=== PATIENT | female | born 1990 | race Caucasian/White ===

== ENCOUNTER 2020-03-29 12:24 | Observation (INO) | payer OTHER ==
[~2020-03-29] VITALS: Ht 175.3 cm; Wt 108.0 kg
[2020-03-29 12:56] VITALS: BP 137/86
[2020-03-29] MEDS ORDERED: cefTRIAXone 2,000 MG in DEXTROSE 5% 100 ML IV SCH (13:45)
[2020-03-29] MEDS ORDERED: LACTATED RINGERS 1,000 ML IV SCH (13:45)
[2020-03-29] MEDS ORDERED: CLINDAMYCIN 900 MG in DEXTROSE 5% 100 ML IV SCH (14:00)
[2020-03-29 14:48] LABS: URINE TOTAL PROTEIN 9.6 mg/dL (0-12)
[2020-04-11] MEDS ORDERED: PNV91TAB10 PO (19:04)
[2020-04-11] MEDS ORDERED: AMOX500C25 PO (19:04)
== END 2020-03-29 16:50 | disposition home or self-care (01) ==
LOC: MFCC 12:24
PROVIDERS: ADMIT Obstetrics & Gynecology; ATTEND Obstetrics & Gynecology
DX: O26.893 Other specified pregnancy related conditions, third trimester (principal); R03.0 Elevated blood-pressure reading, without diagnosis of hypertension; Z3A.37 37 weeks gestation of pregnancy
CPT/HCPCS: 81000; 82570; 96360; 96361; G0378; J3490; J7060; J7120; 36415

== ENCOUNTER 2022-09-20 23:37 | Emergency (ER) | payer OTHER ==
[~2022-09-20] VITALS: Ht 175.3 cm; Wt 95.3 kg
[~2022-09-20 23:37] MED LIST: FERR325E14 PO; IBUP-2213 PO; PNV91TAB10 PO
[2022-09-20 23:43] VITALS: BP 134/68
--- NOTE | 2022-09-20 23:48 | NUR ---
TO LOBBY FOLLOWING TRIAGE
--- NOTE | 2022-09-21 01:34 | NUR ---
PT TO BED 04.
[2022-09-21] MEDS ORDERED: NACL 0.9% 1,000 ML IV ONE (01:50)
[2022-09-21] MEDS ORDERED: VANCOMYCIN 1,000 MG in DEXTROSE 5% 250 ML IV ONE (01:50)
--- NOTE | 2022-09-21 01:53 | NUR ---
LABS COLLECTED AND GIVEN TO DIANA
[2022-09-21] MEDS ORDERED: VANCOMYCIN 1,000 MG VIAL ONE (02:00)
[2022-09-21 02:10] LABS: BASOPHILS % (AUTO) 0.2 % (0.0-2.0); EOSINOPHILS # (AUTO) 0.1 K/uL (0-0.4); EOSINOPHILS % (AUTO) 0.8 % (0.0-4.0); HEMATOCRIT 39.1 % (36-48); HEMOGLOBIN 12.9 g/dL (12.0-16.0); LYMPHOCYTES # (AUTO) 1.9 K/uL (2.5-16.5); LYMPHOCYTES % (AUTO) 11.3 % (20.5-51.1); MEAN CORPUSCULAR HEMOGLOBIN 29 pg (27-31); MEAN CORPUSCULAR HGB CONC 33 g/dL (33-37); MEAN CORPUSCULAR VOLUME 86.5 fL (80-94); MONOCYTES # (AUTO) 1.1 K/uL (0.8-1.0); MONOCYTES % (AUTO) 6.6 % (1.7-9.3); NEUTROPHILS # (AUTO) 13.3 K/uL (1.8-7.7); PLATELET COUNT (AUTO) 337 K/uL (140-450); RED BLOOD CELL COUNT(AUTO) 4.52 MIL/uL (4.20-5.40); RED CELL DISTRIBUTION WIDTH 13.3 % (11.6-13.7); WHITE BLOOD COUNT (AUTO) 16.4 K/uL (4.8-10.8)
[2022-09-21 02:24] LABS: NEUTROPHILS % (AUTO) 81.1 % (42.2-75.2)
--- NOTE | 2022-09-21 02:27 | NUR ---
pt with chills for 2 days and nauseated presenting red swelling abcess on the right pelvic area. room air alert oriented x .
[2022-09-21 02:38] LABS: ALBUMIN 3.4 g/dL (3.4-5.0); ANION GAP 12.5 (8-16); CARBON DIOXIDE 28.4 mmol/L (21-32); POTASSIUM 3.9 mmol/L (3.5-5.1); TOTAL BILIRUBIN 0.3 mg/dL (0.0-1.0)
[2022-09-21] MEDS ORDERED: LIDOCAINE 1% 500 MG/ 50 ML VIAL INJ ONE (03:15)
[2022-09-21] MEDS ORDERED: LIDOCAINE MPF 1% 5 ML ONE (03:19)
[2022-09-21] MEDS ORDERED: LIDOCAINE MPF 1% 10 ML ONE (03:20)
[2022-09-21] MEDS ORDERED: CHLO480L2 TP (05:35)
[2022-09-21] MEDS ORDERED: SULF-58 PO (05:35)
[2022-09-21] MEDS ORDERED: NAPR-54 PO (05:36)
[2022-09-21 05:45] VITALS: BP 134/68
--- NOTE | 2022-09-21 05:45 | NUR ---
Patient discharged with v/s stable. Written and verbal after care instructions given and explained. Patient alert, oriented and verbalized understanding of instructions. Ambulatory with steady gait. All questions addressed prior to discharge. ID band removed. Patient advised to follow up with PMD. Rx of HIBICLENS, NAPROSYN, BACTRIM given. Patient educated on indication of medication including possible reaction and side effects. Opportunity to ask questions provided and answered.
== END 2022-09-21 05:45 | disposition home or self-care (01) ==
LOC: MED 23:37
DX: L02.211 Cutaneous abscess of abdominal wall (principal); Z88.8 Allergy status to other drugs, medicaments and biological substances
CPT/HCPCS: 10060; 36415; 80053; 83605; 85025; 87040; 87086; 96365; 96366; 99284; J2001; J3370; J7030

== ENCOUNTER 2022-09-23 02:09 | Inpatient (IN) | payer OTHER ==
[~2022-09-23] VITALS: Ht 175.3 cm; Wt 94.8 kg
[~2022-09-23 02:09] MED LIST changes: +CHLO480L2 TP; +NAPR-54 PO; +SULF-58 PO
[2022-09-23 02:15] VITALS: BP 165/72
--- NOTE | 2022-09-23 03:42 | NUR ---
Patient taken to bed 11.
[2022-09-23] MEDS ORDERED: VANCOMYCIN 1,000 MG in DEXTROSE 5% 250 ML IV ONE (03:50)
[2022-09-23] MEDS ORDERED: NACL 0.9% 1,500 ML IV ONE (03:50)
[2022-09-23] MEDS ORDERED: KETOROLAC 30 MG/ML VIAL IVP ONE (03:50)
--- NOTE | 2022-09-23 03:55 | NUR ---
COVID-19 and culture swabs collected and sent to lab.
[2022-09-23] MEDS ORDERED: VANCOMYCIN 1,000 MG VIAL ONE ×2 (04:14→13:09)
[2022-09-23 04:15] LABS: BASOPHILS % (AUTO) 0.3 % (0.0-2.0); EOSINOPHILS # (AUTO) 0.3 K/uL (0-0.4); EOSINOPHILS % (AUTO) 2.4 % (0.0-4.0); HEMOGLOBIN 11.5 g/dL (12.0-16.0); LYMPHOCYTES # (AUTO) 2.2 K/uL (2.5-16.5); LYMPHOCYTES % (AUTO) 18.5 % (20.5-51.1); MEAN CORPUSCULAR HEMOGLOBIN 29 pg (27-31); MEAN CORPUSCULAR HGB CONC 33 g/dL (33-37); MEAN CORPUSCULAR VOLUME 86.8 fL (80-94); MONOCYTES # (AUTO) 0.6 K/uL (0.8-1.0); MONOCYTES % (AUTO) 5.3 % (1.7-9.3); NEUTROPHILS # (AUTO) 8.6 K/uL (1.8-7.7); NEUTROPHILS % (AUTO) 73.5 % (42.2-75.2); PLATELET COUNT (AUTO) 328 K/uL (140-450); RED BLOOD CELL COUNT(AUTO) 4.04 MIL/uL (4.20-5.40); RED CELL DISTRIBUTION WIDTH 13.4 % (11.6-13.7); WHITE BLOOD COUNT (AUTO) 11.7 K/uL (4.8-10.8)
[2022-09-23 04:35] LABS: ALBUMIN 3.6 g/dL (3.4-5.0); ANION GAP 10.3 (8-16); CARBON DIOXIDE 28.8 mmol/L (21-32); POTASSIUM 4.1 mmol/L (3.5-5.1); TOTAL BILIRUBIN 0.1 mg/dL (0.0-1.0)
--- NOTE | 2022-09-23 04:44 | NUR ---
Patient noted to have existing wounds upon arrival to ER. Photos taken of wound and placed in chart. Wound covered with non adherent dressing. Physician informed.
[2022-09-23] MEDS ORDERED: VANCOMYCIN PER PHARMACY MC PRN (05:15)
[2022-09-23] MEDS ORDERED: MAGNESIUM OXIDE 400 MG TAB PO PRN (05:15)
[2022-09-23] MEDS ORDERED: MORPHINE SULFATE 4 MG/ML SYR IVP PRN (05:15)
[2022-09-23] MEDS ORDERED: ACETAMINOPHEN 325 MG TAB PO PRN (05:15)
[2022-09-23] MEDS ORDERED: ONDANSETRON 4 MG/2 ML VIAL IVP PRN (05:15)
[2022-09-23] MEDS ORDERED: POTASSIUM CHLORIDE 10 MEQ TABER PO PRN (05:15)
[2022-09-23] MEDS ORDERED: HYDROcodone/APAP 5/325 MG 1 TAB TAB PO PRN (05:15)
--- NOTE | 2022-09-23 07:49 | NUR ---
Pt report given to Mustapha RACHEL. Transfer of care at this time.
--- NOTE | 2022-09-23 08:14 | NUR ---
Dr. Tolliver examining patient.
[2022-09-23] MEDS: NACL 0.9% 1,000 ML IV SCH ×2 (09:00→17:11)
[2022-09-23] MEDS: LEVOFLOXACIN 500 MG/D5W PREMIX 100 ML IV SCH (09:19)
[2022-09-23] MEDS: NIFEdipine 60 MG TABER PO SCH (09:19)
--- NOTE | 2022-09-23 12:35 | NUR ---
PT MOVED TO BED 4 VIA [facility]
[2022-09-23] MEDS ORDERED: VANCOMYCIN 1,000 MG in DEXTROSE 5% 250 ML IV SCH (13:00)
[2022-09-23] MEDS ORDERED: metroNIDAZOLE 500 MG/NS PREMIX 100 ML IV SCH (13:00)
--- NOTE | 2022-09-23 14:16 | NUR ---
Patient will be admitted to care of DR. FLAHERTY. Admited to TELE. Will go to room 112B. Belongings list completed. Report to BETTINA.
--- NOTE | 2022-09-23 15:00 | NUR ---
RECEIVED REPORT FROM ER NURSE. ADMITTED 32 Y/O FEMALE WITH A CC OF SUPRAPUBIC PAIN AND SWELLING. ADMITTING DX CELLULITIS. AOX4, ABLE TO MAKE NEEDS KNOWN. NO C/O PAIN AT THIS TIME, NO SOB ON ROOM AIR. SR ON TELE. CONTINENT AND AMBULATORY TO BATHROOM. WITH LAC 20G RUNNING IVF ORDERED
[2022-09-23 15:03] VITALS: BP 149/83
[2022-09-23] MEDS ORDERED: VANCOMYCIN 1.25GM PREMIX 250 ML IV SCH (16:00)
--- NOTE | 2022-09-23 17:31 | NUR ---
PT ASLEEP IN BED, NO APPARENT DISTRESS
--- NOTE | 2022-09-23 19:26 | NUR ---
GOT REPORT FROM THE NIGHT NURSE PT IS RESTING ON THE PHONE.[email or web address]
[2022-09-23 20:00] VITALS: BP 134/81
[2022-09-23] MEDS: VANCOMYCIN 1,000 MG in DEXTROSE 5% 250 ML IV SCH (21:03)
--- NOTE | 2022-09-23 22:39 | NUR ---
pt resting well iv infusing as ordered,no complaint.[email or web address]
--- NOTE | 2022-09-23 23:42 | NUR ---
REPORT GIVEN TO THE SENIOR [employer]ER[employer] MARKET COORDINATOR [email or web address]
--- NOTE | 2022-09-23 23:45 | NUR ---
RECEIVED PT. FROM WILSON WARD FOR CONTINUITY OF CARE. PER REPORT PT. AOX4. ON 4L NC. SINUS RHYTHM ON THE MONITOR. ON CARDIAC DIET. PT. IV TO LEFT ARM 20G LINE PATENT AND INTACT,INFUSING NS AT 80 ML/HR. PT. WITH SUPRAPUBIC DRESSING . PT. SLEEPING AT THIS TIME. NO S/S OF PAIN NOTED. PROVIDED SAFE AND QUIET ENVIRONMENT.
[2022-09-24] VITALS: BP 109/63
[2022-09-24 04:00] VITALS: BP 127/79
[2022-09-24] MEDS: VANCOMYCIN 1,000 MG in DEXTROSE 5% 250 ML IV SCH ×2 (04:57→12:47)
[2022-09-24] MEDS: NACL 0.9% 1,000 ML IV SCH (06:14)
[2022-09-24 07:11] LABS: BASOPHILS % (AUTO) 0.4 % (0.0-2.0); EOSINOPHILS # (AUTO) 0.2 K/uL (0-0.4); EOSINOPHILS % (AUTO) 2.2 % (0.0-4.0); HEMATOCRIT 35.4 % (36-48); HEMOGLOBIN 11.8 g/dL (12.0-16.0); LYMPHOCYTES # (AUTO) 2.1 K/uL (2.5-16.5); LYMPHOCYTES % (AUTO) 29.8 % (20.5-51.1); MEAN CORPUSCULAR HEMOGLOBIN 29 pg (27-31); MEAN CORPUSCULAR HGB CONC 33 g/dL (33-37); MEAN CORPUSCULAR VOLUME 85.9 fL (80-94); MONOCYTES # (AUTO) 0.4 K/uL (0.8-1.0); MONOCYTES % (AUTO) 5.5 % (1.7-9.3); NEUTROPHILS # (AUTO) 4.3 K/uL (1.8-7.7); NEUTROPHILS % (AUTO) 62.1 % (42.2-75.2); PLATELET COUNT (AUTO) 339 K/uL (140-450); RED BLOOD CELL COUNT(AUTO) 4.12 MIL/uL (4.20-5.40); RED CELL DISTRIBUTION WIDTH 13.3 % (11.6-13.7)
[2022-09-24 07:25] LABS: ANION GAP 11.5 (8-16); CARBON DIOXIDE 26.3 mmol/L (21-32); CREATININE 0.9 mg/dL (0.6-1.3); POTASSIUM 3.8 mmol/L (3.5-5.1)
[2022-09-24 08:00] VITALS: BP 143/99
--- NOTE | 2022-09-24 09:35 | NUR ---
PATIENT HAS BEEN SCREENED AND CATEGORIZED HIGH NUTRITION RISK. PATIENT WILL BE SEEN WITHIN 1-[address] RECEIVED [facility] NUTRITION CONSULT FOR WOUNDS/PRESSURE ULCERS ON 09/24/22 REVIEWED BY DANA QUI[address]ON[address] RD
[2022-09-24] MEDS: LEVOFLOXACIN 500 MG/D5W PREMIX 100 ML IV SCH (09:56)
[2022-09-24] MEDS: NIFEdipine 60 MG TABER PO SCH (09:56)
[2022-09-24] MEDS ORDERED: CLIN300C61 PO (13:16)
--- NOTE | 2022-09-24 13:55 | NUR ---
09/24/22 RD INITIAL ASSESSMENT COMPLETED PLEASE REFER TO NUTRITION ASSESSMENT UNDER CARE ACTIVITY FOR ESTIMATED NUTRITIONAL NEEDS. 1. CONTINUE CARDIAC DIET TOLERATED 2. RECOMMEND JESSICA BID FOR WOUNDS/PRESSURE ULCER SUPPORT - PROVIDES 160 KCAL AND [address] TO FOLLOW-UP 7 DAYS, LOW RISK REVIEWED BY DANA QUI[address] RD
--- NOTE | 2022-09-24 14:08 | NUR ---
Presumptive culture result per lab, mrsa.
--- NOTE | 2022-09-25 08:46 | NUR ---
WOUND CONSULT NOT DONE, PT. DISCHARGE.
== END 2022-09-24 15:05 | disposition home or self-care (01) | DRG 720 ==
LOC: MED 02:09 → MTU 05:15
PROVIDERS: ADMIT Student in an Organized Health Care Education/Training Program; ATTEND Student in an Organized Health Care Education/Training Program
DX: A41.9 Sepsis, unspecified organism (principal); L03.319 Cellulitis of trunk, unspecified; E66.01 Morbid (severe) obesity due to excess calories; E86.1 Hypovolemia; Z68.30 Body mass index [BMI] 30.0-30.9, adult; Z20.822 Contact with and (suspected) exposure to COVID-19; B95.62 Methicillin resistant Staphylococcus aureus infection as the cause of diseases classified elsewhere; Z88.8 Allergy status to other drugs, medicaments and biological substances
CPT/HCPCS: 36415; 76881; 80048; 80053; 80202; 83605; 85025; 87040; 87070; 87081; 87186; 96365; 96366; 96375; 99285; J1644; J1885; J1956; J3370; J7060; Q0092